=== PATIENT | female | born 2000 | race African-American/Black ===

== ENCOUNTER 2019-05-21 00:01 | Emergency (ER) | payer SELFPAY ==
[~2019-05-21] VITALS: Ht 157.5 cm; Wt 77.1 kg
[2019-05-21 00:05] VITALS: BP_SYST 120
[2019-05-21] MEDS ORDERED: ACETAMINOPHEN 325 MG TABLET PO ONE (02:30)
[2019-05-21] MEDS ORDERED: MORPHINE 2 MG/ML INJ. SYRINGE IM ONE (04:00)
[2019-05-21] MEDS ORDERED: MORPHINE 2 MG/ML INJ. SYRINGE IVP ONE (04:00)
[2019-05-21 05:00] VITALS: BP_SYST 124
== END 2019-05-21 05:00 | disposition home or self-care (01) ==
LOC: SED 00:01
DX: S09.90XA Unspecified injury of head, initial encounter (principal); S39.91XA Unspecified injury of abdomen, initial encounter; Y04.0XXA Assault by unarmed brawl or fight, initial encounter; X58.XXXA Exposure to other specified factors, initial encounter; Y93.89 Activity, other specified; Y92.89 Other specified places as the place of occurrence of the external cause; Y99.8 Other external cause status
CPT/HCPCS: 70450; 74176; 96372; 99284; J2270